=== PATIENT | female | born 1975 | race Caucasian/White ===

== ENCOUNTER 2016-08-11 11:10 | Emergency (ER) | payer OTHER ==
[~2016-08-11] VITALS: Ht 165.1 cm; Wt 61.5 kg
[~2016-08-11 11:10] MED LIST: GLYBURIDE2.5 MG PO; KEFLEX500 MG PO; PRENATAL TABLE1 EAC3 PO; PRENATAL VITAM1 EA11 PO; TYLENOL REGULA325 MG PO
[2016-08-11] MEDS ORDERED: ZITHROMAX Z-PA250 MG PO (13:33)
[2016-08-11 13:52] VITALS: BP 107/73
== END 2016-08-11 13:55 | disposition home or self-care (01) ==
LOC: EME 11:10
DX: J20.9 Acute bronchitis, unspecified (principal); F17.200 Nicotine dependence, unspecified, uncomplicated
CPT/HCPCS: 71020; 99281; 99283